=== PATIENT | female | born 1945 | race Caucasian/White ===

== ENCOUNTER 2018-01-08 10:52 | Outpatient (CLI) | payer MEDICARE, MEDICAID, SELFPAY ==
[2018-01-09 17:58] LABS: Alternaria Tenuis IgE <0.35 kU/L; Aspergillus Fumigatus IgE <0.35 kU/L; Bermuda Grass IgE <0.35 kU/L; Cockroach IgE <0.35 kU/L; D Farinae IgE 1.28 kU/L; D Pteronyssinus IgE 1.86 kU/L; Eastern Sycamore IgE <0.35 kU/L; Elm IgE <0.35 kU/L; Epicoccum purpurascens IgE <0.35 kU/L; Giant Ragweed IgE <0.35 kU/L; Oak IgE <0.35 kU/L; Penicillium chrysogenum IgE <0.35 kU/L; Red Sorrel IgE <0.35 kU/L; Rough Pigweed IgE <0.35 kU/L; Silver Birch IgE 2.21 kU/L; Stemphyllium IgE <0.35 kU/L; Walnut Tree IgE <0.35 kU/L
[2018-01-09 19:17] LABS: Cat Epithelium IgE 0.98 kU/L; Cladosporium IgE <0.35 kU/L; Cocklebur IgE <0.35 kU/L; Cottonwood IgE <0.35 kU/L; Dog Dander IgE <0.35 kU/L; Lamb's Quarter IgE <0.35 kU/L; Short Ragweed IgE <0.35 kU/L; Timothy Grass IgE <0.35 kU/L; Wormwood IgE <0.35 kU/L
[2018-01-11 17:21] LABS: CLASS 0; Cedar Red IgE <0.10 kU/L (<0.35); Fusarium oxysporum/vasinfectum <0.35 kU/L (<0.35); Rhodotorula IgE <0.35 kU/L (<0.35)
== END 2018-01-08 11:12 ==
PROVIDERS: PCP Family Medicine; Visit Provider Otolaryngology Otolaryngology/Facial Plastic Surgery
DX: J31.0 Chronic rhinitis (principal); R09.82 Postnasal drip; Z01.82 Encounter for allergy testing
CPT/HCPCS: 36415; 86003

== ENCOUNTER 2018-05-31 12:47 | Outpatient (REF) | payer MEDICARE, MEDICAID, SELFPAY ==
--- NOTE | 2018-05-31 11:20 | PAPFT_PTH ---
PATIENT: Hannah Jiang LOC: [facility] U#:[id number] AGE/SX: 72/F ROOM: RE05/31/[address]: Brianna Bateman : 1945 BED: DIS: 05/31/2018 SPEC #: [id number] RECD: 05/31/18 17:57 STATUS: BUSTER REJanene #: [id number] CHERELLE: 05/31/18 11:[address]: Brianna Bateman DEPT: [facility] Cytology RECD BY: Anita Hays ENTERED: 05/31/18 17:57 SP TYPE: PAPFT KEVINHR DR: Sukhdeep Vu Tissues: 1 - CX/ENDOCX FOR PAP SMEARS Procedures: PAP THIN PREP/[facility] Screening HPV DNA PROBE Comments: [id number]
== END 2018-05-31 13:07 ==
LOC: LBN 12:47
PROVIDERS: PCP Family Medicine; Visit Provider Obstetrics & Gynecology Gynecology
DX: Z12.4 Encounter for screening for malignant neoplasm of cervix (principal); Z11.51 Encounter for screening for human papillomavirus (HPV)
CPT/HCPCS: 88142; 87624

== ENCOUNTER → 2020-03-25 12:55 | Outpatient (BNVA) | payer MEDICARE, MEDICAID, SELFPAY | PROVIDERS: PCP Family Medicine; Referring Provider Family Medicine; Visit Provider Nurse Practitioner Gerontology | DX: N39.41 Urge incontinence (principal); K59.09 Other constipation | CPT/HCPCS: 81003; 99205 ==

== ENCOUNTER 2020-05-19 12:54 | Outpatient (REF) | payer MEDICARE, MEDICAID, SELFPAY ==
--- NOTE | 2020-05-19 11:30 | PAPFT_PTH ---
PATIENT: Hannah Jiang LOC: [facility] U#:[id number] AGE/SX: 74/F ROOM: RE05/19/[address]: Brianna Bateman : 1945 BED: DIS: 05/19/2020 SPEC #: [id number] RECD: 05/19/20 17:29 STATUS: BUSTER BRANDT #: [id number] CHERELLE: 05/19/20 11:[address]: Brianna Bateman DEPT: [facility] Cytology RECD BY: Anita Hays ENTERED: 05/19/20 17:30 SP TYPE: PAPFT OTHR DR: Sukhdeep Vu Tissues: 1 - CX/ENDOCX FOR PAP SMEARS Procedures: PAP THIN PREP/[facility] Screening HPV DNA PROBE Comments: [id number]
== END 2020-05-19 12:55 | disposition home or self-care (01) ==
LOC: LBN 12:54
PROVIDERS: PCP Family Medicine; Visit Provider Obstetrics & Gynecology Gynecology
DX: Z12.4 Encounter for screening for malignant neoplasm of cervix (principal); Z11.51 Encounter for screening for human papillomavirus (HPV)
CPT/HCPCS: 88142; 87624

== ENCOUNTER → 2020-05-25 13:59 | Outpatient (BNVA) | payer MEDICARE, MEDICAID, SELFPAY | PROVIDERS: PCP Family Medicine; Referring Provider Family Medicine; Visit Provider Psychiatry & Neurology Neurology | DX: R20.8 Other disturbances of skin sensation (principal); M79.2 Neuralgia and neuritis, unspecified; G89.29 Other chronic pain; I63.9 Cerebral infarction, unspecified; I10 Essential (primary) hypertension; E11.9 Type 2 diabetes mellitus without complications | CPT/HCPCS: 99215; G2212 ==

== ENCOUNTER 2022-04-07 12:12 | Outpatient (CLI) | payer MEDICARE, MEDICAID, SELFPAY ==
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
--- OUTSIDE RECORDS SUMMARY | 2022-04-07 12:16 | XMS_ITS | CCD ---
:1945 Author Care Team Providers Name Role Phone ANAIS KEENAN Attending Physician Unavailable Vital Signs Unknown or Not Available. Allergies Unknown or Not Available. Procedures Unknown or Not Available. History of Immunizations Unknown or Not Available. Problems Unknown or Not Available. Results Unknown or Not Available. Active Medications Unknown or Not Available. Medications Administered During Visit Unknown or Not Available. Encounters Encounter Diagnosis Diagnosis Code Start Date Chronic obstructive pulmonary disease, unspecified J449 01/11/2022 Social History Smoking Status Code Start Date End Date Never smoker [id number] Patient Decision Aids Unknown or Not Available. Discharge Instructions You were admitted to [facility] on 01/11/2022 11:00 with a principal diagnosis of Chronic obstructive pulmonary disease , unspecified You were discharged from [facility] on 01/11/2022 11:00 Should you have any questions prior to d ischarge, please contact a member of your healthcare team. If you have left the spital and have any questions, please contact your primary care physician. Chief Complaint and Reason For Visit Unknown or Not Available. Function Status Unknown or Not Available. Plan of Care Unknown or Not Available. Referral/Transition of Care Unknown or Not Available.
--- OUTSIDE RECORDS SUMMARY | 2022-04-07 12:16 | XMS_ITS | CCD ---
:1945 Author Care Team Providers Name Role Phone ANAIS KEENAN Attending Physician Unavailable ANAIS KEENAN Rounding (Secondary) Physician Unavailab le Vital Signs Unknown or Not Available. Allergies Unknown or Not Available. Procedures Unknown or Not Available. History of Immunizations Unknown or Not Available. Problems Unknown or Not Available. Results Unknown or Not Available. Active Medications Unknown or Not Available. Medications Administered During Visit Unknown or Not Available. Encounters Encounter Diagnosis Diagnosis Code Start Date Chronic obstructive pulmonary disease, unspecified J449 10/05/2021 Social History Smoking Status Code Start Date End Date Never smoker [id number] Patient Decision Aids Unknown or Not Available. Discharge Instructions You were admitted to [facility] on 10/05/2021 11:22 with a principal diagnosis of Chronic obstructive pulmonary disease , unspecified You were discharged from [facility] on 10/05/2021 11:22 Should you have any questions prior to [...]
--- OUTSIDE RECORDS SUMMARY | 2022-04-07 12:16 | XMS_ITS | CCD ---
:1945 Author Care Team Providers Name Role Phone SALIMA ROMERO Attending Physician Unavailable Vital Signs Unknown or Not Available. Allergies Unknown or Not Available. Procedures Unknown or Not Available. History of Immunizations Unknown or Not Available. Problems Unknown or Not Available. Results BASIC METABOLIC PANEL (BMP) - Collect Da te/Time: 04/05/2022 15:14 Test Name Code Test Result Test Units Test Ref Range GLUCOSE 2345-7 102 mg/dL L=70 H=116 BUN 3094-0 16 mg/dL L=6 H=25 CREATININE 2160-0 1.13 mg/dL L=0.51 H=0.95 SODIUM SERUM 2951-2 145 mmol/L L=136 H=145 POTASSIUM SERUM 2823-3 4.4 mmol/L L=3.4 H=5.2 CHLORIDE SERUM 2075-0 103 mmol/L L=96 H=110 CARBON DIOXIDE (CO2) 2028-9 32 mmol/L L=22 H= 34 ANION GAP 73956-1 10.1 mmol/L CALCIUM SERUM 90957-2 9.1 mg/dL L=8.2 H=10.2 AGE 76 years eGFR (non-Afr.Amer.) 54740-3 47 mL/min eGFR (Afr-Lithuanian) 39769-2 56 mL/min BNP (PRO-B NATRIURETIC PEPTIDE) - [facility] Date/Time: 04/05/2022 15:14 Test Name Code Test Result Test Units Test Ref Range NT-proBNP 15517-7 220.0 pg/mL L=0.0 H=450 HEPATIC FUNCTION PANEL - Collect Date/Ti me: 04/05/2022 15:14 Test Name Code Test Result Test Units Test Ref Range ALBUMIN 1751-7 4.0 gm/dL L=3.4 H=5.0 TOTAL PROTEIN 2885-2 7.3 gm/dL L=6.0 H=8.0 BILIRUBIN TOTAL 1975-2 0.5 mg/dL L=0.0 H=1.3 BILIRUBIN DIRECT 1971-1 0.10 mg/dL L=0.00 H=0. 50 SGOT (AST) 1920-8 24 U/L L=15 H=37 SGPT (ALT) 1742-6 19 U/L L=12 H=78 ALK. PHOS. 6768-6 104 U/L L=46 H=116 LIPID PANEL* - Collect Date/Time: 2022 15:14 Test Name Code Test Result Test Units Test Ref Range CHOLESTEROL 2093-3 246 mg/dL L=0 H=200 TRIGLYCERIDES 2571-8 66 mg/dL L=57 H=256 HDL 2085-9 121 mg/dL L=38 H=92 non-HDL-C 74700-5 125 mg/dL L=0 H=160 LDL (CALC) 98998-1 112 mg/dL L=0 H=130 % HDL 49.2 % Chol/HDL Ratio 9830-1 2.0 L=0.0 H=4.4 CHD Relative Risk 0.5 x Avg L=0.0 H=1. 0 LDL/HDL Ratio 71503-4 0.9 L=0.0 H=3.2 CHD Relative Risk. 0.3 x Avg L=0.0 H=1 .0 FASTING STATUS: NON FASTING N/A TSH THYROID STIMULATING HORMONE* - Colle ct Date/Time: 04/05/2022 15:14 Test Name Code Test Result Test Units Test Ref Range TSH 3014-8 0.798 uIU/mL L=0.360 H=3.740 CBC W/ DIFFERENTIAL* - Collect Date/Time : 04/05/2022 15:14 Test Name Code Test Result Test Units Test Ref Range WBC 6690-2 7.22 th/cmm L=5.00 H=10.00 NEUT % 73.8 % L=40.0 H=80.0 LYMPH % 18.7 % L=10.0 H=50.0 MONO % 94259-0 6.1 % L=2.0 H=12.0 EOS % 0.7 % L=0.0 H=8.0 BASO % 0.4 % L=0.0 H=3.0 IG % 2514-8 0.3 % L=0.0 H=1.1 NRBC % 44119-3 0.0 % L=0.0 H=0.0 NEUT abs count 751-8 5.3 th/cmm L=1.6 H=8.4 LYMPH abs count 731-0 1.4 th/cmm L=1.5 H=4.0 MONO abs count 742-7 0.4 th/cmm L=0.2 H=1.0 EOS abs count 711-2 0.1 th/cmm L=0.0 H=0.5 BASO abs count 704-7 0.0 th/cmm L=0.0 H=0.2 IG abs count 88254-6 0.0 th/cmm L=0.0 H=0.1 NRBC abs count 96940-0 0.0 mil/cmm L=0.0 H=0.0 RBC 789-8 4.62 mil/cmm L=3.90 H=5.40 HEMOGLOBIN 718-7 13.1 gm/dL L=12.0 H=16.0 HEMATOCRIT 4544-3 41 % L=37 H=47 MCV 787-2 88 fL L=82 H=92 MCH 785-6 28.4 pg L=27.0 H=31.0 MCHC 786-4 32.1 % L=32.0 H=36.0 RDW-SD 788-0 38.6 fL L=39.0 H=49.0 PLATELET COUNT 777-3 237 th/cmm L=150 H=450 Active Medications Unknown or Not Available. Medications Administered During Visit Unknown or Not Available. Encounters Encounter Diagnosis Diagnosis Code Start Date Hyperlipidemia [id number] 04/05/2022 Social History Smoking Status Code Start Date End Date Never smoker [id number] Patient Decision Aids Unknown or Not Available. Discharge Instructions You were admitted to [facility] on 04/05/2022 00:00 with a principal diagnosis of Hyperlipidemia, unspecified You had the following tests done: BASIC METABOLIC PANEL (BMP) BNP (PRO-B NATRIURETIC PEPTIDE) CBC W/ DIFFERENTIAL* HEPATIC FU NCTION PANEL LIPID PANEL* TSH THYROID STIMULATING HORMONE* You were discharged from [facility] on 04/05/2022 00:00 Should you have any questions prior to d ischarge, please contact a member of your healthcare team. If you have left the ho spital and have any questions, please contact your primary care physician. Chief Complaint and Reason For Visit Unknown or Not Available. Function Status Unknown or Not Available. Plan of Care Unknown or Not Available. Referral/Transition of Care Unknown or Not Available.
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
[2022-04-08 15:59] LABS: Troponin T, 5th gen, P 7 ng/L (<=10)
== END 2022-04-07 12:13 | disposition home or self-care (01) ==
LOC: LBO 12:14
PROVIDERS: PCP Family Medicine; Visit Provider Internal Medicine Interventional Cardiology
DX: R06.02 Shortness of breath (principal)
CPT/HCPCS: 36415; 84484

== ENCOUNTER 2022-06-30 15:18 | Outpatient (REF) | payer MEDICARE, MEDICAID, SELFPAY ==
--- NOTE | 2022-06-30 15:00 | PAPFT_PTH ---
PATIENT: Hannah Jiang LOC: [facility] U#:[id number] AGE/SX: 76/F ROOM: RE06/30/[address]: Brianna Bateman : 1945 BED: DIS: 06/30/2022 SPEC #: [id number] RECD: 06/30/22 18:01 STATUS: BUSTER REQ #: [id number] CHERELLE: 06/30/22 15:[address]: Brianna Bateman DEPT: [facility] Cytology RECD BY: Anita Hays ENTERED: 06/30/22 18:01 SP TYPE: PAPFT OTHR DR: Sukhdeep Vu Tissues: 1 - CX/ENDOCX FOR PAP SMEARS Procedures: PAP THIN PREP/[facility] Screening HPV DNA PROBE Comments: [id number]
== END 2022-06-30 15:19 | disposition home or self-care (01) ==
LOC: LBN 15:18
PROVIDERS: PCP Family Medicine; Visit Provider Obstetrics & Gynecology Gynecology
DX: Z11.51 Encounter for screening for human papillomavirus (HPV); Z01.419 Encounter for gynecological examination (general) (routine) without abnormal findings
CPT/HCPCS: 88142; 87624

== ENCOUNTER 2022-07-21 14:28 | Outpatient (CLI) | payer MEDICARE, MEDICAID, SELFPAY ==
--- NOTE | 2022-07-21 11:45 | DI.RAD_ITS ---
Exam(s) XR CERVICAL SPINE COMP 4-5V EXAM: XR CERVICAL SPINE COMP 4-5V CLINICAL HISTORY: Chronic neck pain - hx of trauma, M54.2-cervicalgia. TECHNIQUE: 2D digital imaging was performed. COMPARISON: No exams were available for comparison FINDINGS: Six views No evidence of acute fracture or listhesis nor offset of the spinal laminar line. There is multileve l chronic advanced degenerative disc space narrowing and facet arthropathy. Small Luschka joint oste ophytes at C6-7 and C5-6 levels. Multilevel facet arthropathy. No cervical ribs. No osseous lesion s. IMPRESSION: Advanced multilevel degenerative disc disease and advanced multilevel facet arthropathy. DATA REPOSITORY: RADIATION DOSE DELIVERED:
== END 2022-07-21 14:48 ==
LOC: DI 14:31
PROVIDERS: PCP Family Medicine; Visit Provider Preventive Medicine Occupational Medicine
DX: M50.80 Other cervical disc disorders, unspecified cervical region (principal)
CPT/HCPCS: 72050

== ENCOUNTER 2022-08-19 00:11 | Outpatient (CLI) | payer MEDICARE, MEDICAID, SELFPAY ==
--- NOTE | 2022-08-19 13:00 | DI.MRI_ITS ---
Exam(s) MR CERVICAL SPINE WO EXAM: MR CERVICAL SPINE WO CLINICAL HISTORY: CERVICAL RADICULOPATHY, M54.12 TECHNIQUE: Multiplanar multisequence MRI of the cervical spine was performed without intravenous con trast. COMPARISON: MR MR C T SPINE W/WO CONTRAST from 05/09/2015 CR XR CERVICAL SPINE COMP 4-5V from 07/21/2022 FINDINGS: BONES: Vertebral body heights are maintained. Endplate osteophytes are seen at multiple levels of the cervical spine. Alignment is normal. Bone marrow signal intensity is within normal limits. CERVICAL CORD: Craniovertebral junction is unremarkable. The cervical cord is normal size and signal intensity. SOFT TISSUES: Unremarkable. C2-3: No disc herniation or bulge is identified. No significant central spinal canal or neural forami nal stenosis. C3-4: There is no diffuse disc bulge. There are hypertrophic changes of the facets on the left causi ng moderately severe left neural foraminal stenosis. No significant central spinal canal or right ne ural foraminal stenosis is present. C4-5: No disc herniation or bulge is identified. There are degenerative changes of the facets on the right. Mild to moderate right neural foraminal stenosis is seen. No significant neural foraminal st enosis is seen. No significant central spinal canal stenosis is present. C5-6: There is prominence of the osteophyte disc complex effacing the anterior subarachnoid space. T here is mild narrowing of the central spinal canal. There is prominence of the uncovertebral joint p articularly on the left causing moderate left neural foraminal stenosis. No significant right neural foraminal stenosis is seen. C6-7: There is prominence of the osteophyte disc complex. There is a central disc herniation. No si gnificant central spinal canal stenosis is seen. There are degenerative changes of the uncovertebral joints bilaterally. There does appear to be moderate left and mild right neural foraminal stenosis. C7-T1: No disc herniation or bulge is identified. No significant central spinal canal or neural sebas inal stenosis IMPRESSION: Multilevel degenerative changes in the cervical spine causing central and neural foraminal stenosis a s described above. DATA REPOSITORY:
== END 2022-08-19 00:31 ==
LOC: DI 00:12
PROVIDERS: PCP Family Medicine; Visit Provider Physician Assistant
DX: M48.02 Spinal stenosis, cervical region (principal); M25.78 Osteophyte, vertebrae
CPT/HCPCS: 72141

== ENCOUNTER → 2023-07-17 13:00 | Outpatient (BNVA) | payer MEDICARE, MEDICAID, SELFPAY | PROVIDERS: PCP Family Medicine; Referring Provider Family Medicine; Visit Provider Student in an Organized Health Care Education/Training Program | DX: J44.9 Chronic obstructive pulmonary disease, unspecified (principal); C34.90 Malignant neoplasm of unspecified part of unspecified bronchus or lung; R91.1 Solitary pulmonary nodule | CPT/HCPCS: 99205 ==

== ENCOUNTER → 2023-09-28 11:23 | Outpatient (BNVA) | payer MEDICARE, MEDICAID, SELFPAY | PROVIDERS: PCP Family Medicine; Referring Provider Family Medicine; Visit Provider Internal Medicine Critical Care Medicine | DX: J44.9 Chronic obstructive pulmonary disease, unspecified (principal); J96.11 Chronic respiratory failure with hypoxia; R91.1 Solitary pulmonary nodule | CPT/HCPCS: 99215 ==

== ENCOUNTER → 2023-10-19 11:05 | Outpatient (BNVA) | payer MEDICARE, MEDICAID, SELFPAY | PROVIDERS: PCP Family Medicine; Referring Provider Family Medicine; Visit Provider Internal Medicine Critical Care Medicine | DX: J44.9 Chronic obstructive pulmonary disease, unspecified (principal); J96.11 Chronic respiratory failure with hypoxia; R91.1 Solitary pulmonary nodule | CPT/HCPCS: 99214 ==

== ENCOUNTER → 2023-11-27 11:02 | Outpatient (BNVA) | payer MEDICARE, MEDICAID, SELFPAY | PROVIDERS: PCP Family Medicine; Referring Provider Family Medicine; Visit Provider Podiatrist | DX: E11.43 Type 2 diabetes mellitus with diabetic autonomic (poly)neuropathy (principal); I70.203 Unspecified atherosclerosis of native arteries of extremities, bilateral legs; L60.3 Nail dystrophy; L84 Corns and callosities; B35.1 Tinea unguium; M79.674 Pain in right toe(s); M79.675 Pain in left toe(s); I73.89 Other specified peripheral vascular diseases; M79.2 Neuralgia and neuritis, unspecified; R25.2 Cramp and spasm; R60.0 Localized edema; R09.89 Other specified symptoms and signs involving the circulatory and respiratory systems; L65.9 Nonscarring hair loss, unspecified; L60.2 Onychogryphosis | CPT/HCPCS: 11055; 11056; 11721 ==

== ENCOUNTER → 2024-04-22 11:28 | Outpatient (BNVA) | payer MEDICARE, MEDICAID, SELFPAY | PROVIDERS: PCP Family Medicine; Referring Provider Family Medicine; Visit Provider Podiatrist | DX: L60.3 Nail dystrophy (principal); B35.1 Tinea unguium; L84 Corns and callosities; I73.89 Other specified peripheral vascular diseases; R20.8 Other disturbances of skin sensation; I70.203 Unspecified atherosclerosis of native arteries of extremities, bilateral legs; M79.2 Neuralgia and neuritis, unspecified; M79.671 Pain in right foot; M79.672 Pain in left foot; R09.89 Other specified symptoms and signs involving the circulatory and respiratory systems; R60.0 Localized edema; L65.9 Nonscarring hair loss, unspecified; R23.8 Other skin changes; L60.2 Onychogryphosis | CPT/HCPCS: 11056; 11719; 11721 ==

== ENCOUNTER → 2024-06-25 10:52 | Outpatient (BNVA) | payer MEDICARE, MEDICAID, SELFPAY | PROVIDERS: PCP Family Medicine; Referring Provider Family Medicine; Visit Provider Physician Assistant Surgical | DX: J44.9 Chronic obstructive pulmonary disease, unspecified (principal); C34.90 Malignant neoplasm of unspecified part of unspecified bronchus or lung; J96.11 Chronic respiratory failure with hypoxia | CPT/HCPCS: 36415; 99215 ==

== ENCOUNTER 2024-06-25 13:41 | Outpatient (REF) | payer MEDICARE, MEDICAID, SELFPAY ==
[2024-06-25 12:47] LABS: BE (Venous) 9 mmol/L (-2-3); HCO3 (Venous) 34 mmol/L (23-28); O2 Sat (Venous) 79 %; TCO2 (Venous) 31 mmol/L (24-29); pCO2 (Venous) 55 mmHg (41-51); pH (Venous) 7.39 (7.31-7.41); pO2 (Venous) 45 mmHg
[2024-06-25 12:51] LABS: Lactate 2.3 mmol/L (<or=2.0)
[2024-06-25 12:53] LABS: NT-proBNP 401 pg/mL (<300); Troponin I 6 ng/L (<or=51)
== END 2024-06-25 13:42 | disposition home or self-care (01) ==
LOC: LBN 13:41
PROVIDERS: PCP Family Medicine; Visit Provider Physician Assistant Surgical
DX: J44.9 Chronic obstructive pulmonary disease, unspecified (principal); I50.9 Heart failure, unspecified
CPT/HCPCS: 82805; 83605; 83880; 84484

== ENCOUNTER → 2024-07-22 10:46 | Outpatient (BNVA) | payer MEDICARE, MEDICAID, SELFPAY | PROVIDERS: PCP Family Medicine; Referring Provider Family Medicine; Visit Provider Podiatrist | DX: L60.3 Nail dystrophy (principal); B35.1 Tinea unguium; M79.671 Pain in right foot; M79.672 Pain in left foot; I73.89 Other specified peripheral vascular diseases; I70.203 Unspecified atherosclerosis of native arteries of extremities, bilateral legs; L84 Corns and callosities; M79.2 Neuralgia and neuritis, unspecified; R20.8 Other disturbances of skin sensation; L60.2 Onychogryphosis; R09.89 Other specified symptoms and signs involving the circulatory and respiratory systems; R60.0 Localized edema; L65.9 Nonscarring hair loss, unspecified; R23.8 Other skin changes; L85.8 Other specified epidermal thickening | CPT/HCPCS: 11056; 11721 ==

== ENCOUNTER 2024-08-16 11:08 | Outpatient (CLI) | payer MEDICARE, MEDICAID, SELFPAY ==
--- NOTE | 2024-08-16 11:00 | RT.EKG_ITS ---
APPROVED REPORT Exam: Resting ECG Reason for Exam: Increased SOB Patient Location: O HR:100 bpm ECG Measurements Heart Rate 100 AXIS MN 152 P 57 QRSd 80 QRS 40 QT 332 T 35 QTc 429 Conclusion Sinus tachycardia...rate> 99 Otherwise normal ECG
== END 2024-08-16 11:09 | disposition home or self-care (01) ==
LOC: DI.CARD 11:10
PROVIDERS: PCP Family Medicine; Referring Provider Family Medicine; Visit Provider Internal Medicine Cardiovascular Disease
DX: R06.02 Shortness of breath (principal); I47.11 Inappropriate sinus tachycardia, so stated
CPT/HCPCS: 93010

== ENCOUNTER → 2024-08-16 11:08 | Outpatient (BNVA) | payer MEDICARE, MEDICAID, SELFPAY | PROVIDERS: PCP Family Medicine; Referring Provider Family Medicine; Visit Provider Internal Medicine Cardiovascular Disease | DX: J96.11 Chronic respiratory failure with hypoxia (principal); Z85.118 Personal history of other malignant neoplasm of bronchus and lung | CPT/HCPCS: 99214; 93005 ==

== ENCOUNTER → 2024-10-29 11:36 | Outpatient (BNVA) | payer MEDICARE, MEDICAID, SELFPAY | PROVIDERS: PCP Family Medicine; Referring Provider Family Medicine; Visit Provider Internal Medicine Pulmonary Disease | DX: C34.90 Malignant neoplasm of unspecified part of unspecified bronchus or lung (principal); J44.9 Chronic obstructive pulmonary disease, unspecified; J96.11 Chronic respiratory failure with hypoxia; B35.1 Tinea unguium; L60.3 Nail dystrophy; M79.2 Neuralgia and neuritis, unspecified; I70.203 Unspecified atherosclerosis of native arteries of extremities, bilateral legs; L84 Corns and callosities; I73.89 Other specified peripheral vascular diseases; R20.8 Other disturbances of skin sensation; L60.2 Onychogryphosis; R60.0 Localized edema; L65.9 Nonscarring hair loss, unspecified; R23.4 Changes in skin texture; L85.8 Other specified epidermal thickening | CPT/HCPCS: 99215; 94618; 11056; 11721; 36415 ==

== ENCOUNTER 2024-10-29 17:48 | Outpatient (REF) | payer MEDICARE, MEDICAID, SELFPAY ==
[2024-10-29 13:34] LABS: Abs Immature Grans 0.02 10^3/uL (0.0-0.06); HCT 38.6 % (36.0-46.0); HGB 12.3 g/dL (11.2-15.7); Immature Grans % 0.3 %; MCH 27.2 pg (27.0-33.0); MCHC 31.9 % (32.0-36.0); MCV 85 fL (80-95); MPV 8.9 fL (8.0-11.0); Platelet Count 238 10^3/uL (130-400); RBC 4.52 10^6/uL (3.93-5.22); RDW 11.9 % (11.7-14.6); RDW-SD 37.1 fL; WBC 6.92 10^3/uL (4.4-10.8)
== END 2024-10-29 17:49 | disposition home or self-care (01) ==
LOC: LBN 17:48
PROVIDERS: PCP Family Medicine; Visit Provider Internal Medicine Pulmonary Disease
DX: J44.9 Chronic obstructive pulmonary disease, unspecified (principal)
CPT/HCPCS: 85025

== ENCOUNTER 2024-11-12 16:29 | Outpatient (CLI) | payer MEDICARE, MEDICAID, SELFPAY ==
[2024-11-12] MEDS: Levalbuterol HFA 15 GM INH 4 PUFF IH (14:25)
[2024-11-12] MEDS: Inhaler, Assist Device 1 EACH MC (14:25)
--- NOTE | 2024-11-13 15:18 | W.PFT ---
Date of service: 11/12/24 Time of Service: 12:55 Pulmonary Function Test Result Indications: COPD Impression 1. Good patient effort was noted. ATS standards for reproducibility were met. 2. Spirometry showed mild obstructive lung disease with an FEV1 of 86% (1.49 L)
== END 2024-11-12 16:30 | disposition home or self-care (01) ==
LOC: RT 16:29
PROVIDERS: PCP Family Medicine; Visit Provider Internal Medicine Pulmonary Disease
DX: J44.9 Chronic obstructive pulmonary disease, unspecified (principal)
CPT/HCPCS: 94060; 94726; 94729

== ENCOUNTER → 2025-01-06 10:09 | Outpatient (BNVA) | payer MEDICARE, MEDICAID, SELFPAY | PROVIDERS: PCP Family Medicine; Referring Provider Family Medicine; Visit Provider Internal Medicine Pulmonary Disease | DX: J44.89 Other specified chronic obstructive pulmonary disease (principal); J96.11 Chronic respiratory failure with hypoxia; C34.90 Malignant neoplasm of unspecified part of unspecified bronchus or lung; Z87.891 Personal history of nicotine dependence | CPT/HCPCS: 99214 ==